=== PATIENT | male | born 1990 | race Two or more races ===

== ENCOUNTER 2017-09-01 06:42 | Emergency (ER) | payer MEDICAID ==
[~2017-09-01] VITALS: Ht 175.3 cm; Wt 58.9 kg
[2017-09-01 06:43] VITALS: BP 91/59
== END 2017-09-01 07:55 | disposition home or self-care (01) ==
LOC: ED 07:36
DX: S00.432A Contusion of left ear, initial encounter (principal); B37.42 Candidal balanitis; X58.XXXA Exposure to other specified factors, initial encounter; Y93.89 Activity, other specified; Y92.89 Other specified places as the place of occurrence of the external cause; Y99.8 Other external cause status
CPT/HCPCS: 99282

== ENCOUNTER 2017-11-05 12:49 | Emergency (ER) | payer MEDICAID ==
[~2017-11-05] VITALS: Ht 172.7 cm; Wt 65.5 kg
[2017-11-05 13:00] VITALS: BP 105/53
[2017-11-05] MEDS ORDERED: CEFTRIAXONE 250 MG IM ONE (14:00)
[2017-11-05] MEDS ORDERED: AZITHROMYCIN 500 MG TABLET PO ONE (14:00)
[2017-11-05] MEDS ORDERED: AZITHROMYCIN 500 MG TABLET ONE (14:22)
[2017-11-05] MEDS ORDERED: CEFTRIAXONE 250 MG ONE (14:22)
== END 2017-11-05 14:49 | disposition home or self-care (01) ==
LOC: ED 14:17
DX: A60.01 Herpesviral infection of penis (principal); F17.200 Nicotine dependence, unspecified, uncomplicated
CPT/HCPCS: 36415; 87491; 87591; 87806; 96372; 99284; J0696; G0475